=== PATIENT | female | born 1990 | race African-American/Black ===

== ENCOUNTER 2017-01-27 09:26 | Emergency (ER) | payer MEDICAID ==
[~2017-01-27] VITALS: Ht 149.9 cm; Wt 52.0 kg
[2017-01-27] MEDS ORDERED: SODIUM CHLORIDE 0.9% 1,000 ML IV ONE (12:15)
[2017-01-27] MEDS ORDERED: ONDANSETRON HCL 4MG/2ML VIAL IV ONE (12:15)
[2017-01-27] MEDS ORDERED: FAMOTIDINE 20MG/2ML VIAL IV ONE (12:15)
[2017-01-27 12:55] LABS: HEMATOCRIT. 37.9 % (36.0-48.0); HEMOGLOBIN. 12.7 g/dL (12.0-16.0); MEAN CORPUSCULAR VOLUME 89.8 fL (81.0-99.0); MEAN PLATELET VOLUME 7.6 fl (7.4-10.4); PLATELET 251 x1000/uL (130-400); RED BLOOD CELL COUNT 4.21 mill/uL (4.2-5.4); RED CELL DISTRIBUTION WIDTH 13.7 % (11.6-14.6)
[2017-01-27 13:07] LABS: CHLORIDE 102 mEq/L (98-107)
[2017-01-27 13:13] LABS: CARBON DIOXIDE 28 mEq/L (21-32)
[2017-01-27 13:36] LABS: PLATELET ESTIMATE NORMAL
[2017-01-27] MEDS ORDERED: KETOROLAC 30MG/ML VIAL IV ONE (15:30)
[2017-01-27 16:40] VITALS: BP 108/60
== END 2017-01-27 17:45 | disposition home or self-care (01) ==
LOC: ER 10:24
DX: N83.202 Unspecified ovarian cyst, left side (principal); F17.210 Nicotine dependence, cigarettes, uncomplicated; Z91.018 Allergy to other foods
CPT/HCPCS: 36415; 76830; 76856; 80053; 83690; 85025; 96361; 96374; 96375; 99285; J1885; J2405; J3490; Z7610; J7030

== ENCOUNTER 2017-09-09 09:31 | Emergency (ER) | payer SELFPAY ==
[~2017-09-09] VITALS: Ht 162.6 cm; Wt 59.0 kg
[2017-09-09 10:34] LABS: CLARITY URINE CLEAR (CLEAR); COLOR URINE YELLOW (YELLOW); KETONES URINE NEGATIVE (NEGATIVE); LEUKOCYTE ESTERASE URINE NEGATIVE (NEGATIVE); NITRITE URINE NEGATIVE (NEGATIVE); OCCULT BLOOD URINE NEGATIVE (NEGATIVE); PROTEIN URINE NEGATIVE (NEGATIVE); SPECIFIC GRAVITY URINE 1.021 (1.005-1.030)
[2017-09-09] MEDS ORDERED: ACETAMINOPHEN 325MG TABLET PO ONE (10:45)
[2017-09-09 11:12] LABS: BASOPHILS % 0.5 % (0.0-2.0); EOSINOPHILS % 0.5 % (0.0-5.0); HEMATOCRIT. 32.8 % (36.0-48.0); HEMOGLOBIN. 11.3 g/dL (12.0-16.0); MEAN CORPUSCULAR HEMOGLOBIN 30.1 pg (28.0-32.0); MEAN CORPUSCULAR VOLUME 87.3 fL (81.0-99.0); MEAN PLATELET VOLUME 7.6 fl (7.4-10.4); MONOCYTES % 11.1 % (2.0-8.0); NEUTROPHILS % 59.9 % (40.0-76.0); PLATELET 290 x1000/uL (130-400); RED BLOOD CELL COUNT 3.76 mill/uL (4.2-5.4); RED CELL DISTRIBUTION WIDTH 12.7 % (11.6-14.6)
[2017-09-09 11:15] LABS: CHLORIDE 106 mEq/L (98-107)
[2017-09-09 11:41] LABS: B-HCG QUANTITATIVE 157811 mIU/mL (<3)
[2017-09-09 14:43] VITALS: BP 115/74
== END 2017-09-09 14:44 | disposition home or self-care (01) ==
LOC: ER 09:31
DX: O26.891 Other specified pregnancy related conditions, first trimester (principal); R10.30 Lower abdominal pain, unspecified; O21.9 Vomiting of pregnancy, unspecified; O99.011 Anemia complicating pregnancy, first trimester; Z3A.08 8 weeks gestation of pregnancy; Z91.018 Allergy to other foods
CPT/HCPCS: 36415; 76801; 80053; 81003; 81025; 83690; 84702; 85025; 99285

== ENCOUNTER 2019-04-05 02:27 | Emergency (ER) | payer MEDICAID ==
[~2019-04-05] VITALS: Ht 149.9 cm; Wt 61.0 kg
[2019-04-05] MEDS ORDERED: KETOROLAC 30MG/ML VIAL IM ONE (06:30)
[2019-04-05 06:44] VITALS: BP 103/62
== END 2019-04-05 08:08 | disposition home or self-care (01) ==
LOC: ER 02:27
DX: Z98.890 Other specified postprocedural states (principal); M25.572 Pain in left ankle and joints of left foot
CPT/HCPCS: 73610; 96372; 99283; J1885; Z7610

== ENCOUNTER 2022-02-09 08:22 | Emergency (ER) | payer MEDICAID ==
[~2022-02-09] VITALS: Ht 149.9 cm; Wt 64.0 kg
[2022-02-09] MEDS ORDERED: ACETAMINOPHEN 325MG TABLET PO ONE (11:15)
[2022-02-09] MEDS ORDERED: ALBUTEROL (0.083%) 2.5MG/3ML NEB HHN STA (11:31)
[2022-02-09] MEDS ORDERED: ALBU6.7H3 INH (13:05)
[2022-02-09] MEDS ORDERED: TOPUD MT (13:05)
[2022-02-09 13:20] VITALS: BP 105/65
== END 2022-02-09 14:08 | disposition home or self-care (01) ==
LOC: ER 08:22
DX: J45.909 Unspecified asthma, uncomplicated (principal); R06.02 Shortness of breath; Z20.822 Contact with and (suspected) exposure to COVID-19
CPT/HCPCS: 71045; 81025; 87426; 87804; 93005; 94640; 99285; C9803; Z7610

== ENCOUNTER 2023-01-22 01:24 | Emergency (ER) | payer MEDICAID ==
[~2023-01-22] VITALS: Ht 149.9 cm; Wt 63.0 kg
[~2023-01-22 01:24] MED LIST: ALBU6.7H3 INH; TOPUD MT
[2023-01-22 02:51] LABS: ALANINE AMINOTRANSFERASE 22 IU/L (10-49); ALBUMIN 4.5 g/dL (3.2-4.8); ASPARTATE AMINOTRANSFERASE 18 IU/L (<34); BILIRUBIN TOTAL 0.3 mg/dL (0.1-1.0); CALCIUM 9.4 mg/dL (8.7-10.4); CARBON DIOXIDE 26 mEq/L (21-32); CHLORIDE 105 mEq/L (98-107); CREATININE 0.8 mg/dL (0.6-1.0); GLUCOSE 95 mg/dL (70-105); POTASSIUM 3.8 mEq/L (3.5-5.1); PROTEIN TOTAL 8.5 g/dL (6.0-8.3); SODIUM 138 mEq/L (136-145); UREA NITROGEN BLOOD 17 mg/dL (9-23)
[2023-01-22 02:54] LABS: BASOPHILS % 0.6 % (0.0-2.0); EOSINOPHILS % 2.3 % (0.0-5.0); HEMATOCRIT. 36.6 % (36.0-48.0); HEMOGLOBIN. 12.1 g/dL (12.0-16.0); LYMPHOCYTES % 36.3 % (20.0-50.0); MEAN CORPUSCULAR HEMOGLOBIN 28.7 pg (28.0-32.0); MEAN CORPUSCULAR VOLUME 87.1 fL (81.0-99.0); NEUTROPHILS % 53.8 % (40.0-76.0); PLATELET 340 x1000/uL (130-400); RED BLOOD CELL COUNT 4.21 mill/uL (4.2-5.4); RED CELL DISTRIBUTION WIDTH 13.4 % (11.6-14.6); WHITE BLOOD COUNT 9.1 x1000/uL (4.5-11.0)
[2023-01-22 03:48] LABS: TROPONIN I HIGH SENSITIVITY < 4 ng/L (3.0-34)
[2023-01-22] MEDS ORDERED: IPRATROPIUM BROMIDE (0.02%) 0.5MG/2.5ML NEB HHN STA (06:29)
[2023-01-22] MEDS ORDERED: PREDNISONE 20MG TABLET PO STA (06:29)
[2023-01-22] MEDS ORDERED: ALBUTEROL (0.083%) 2.5MG/3ML NEB HHN STA (06:29)
[2023-01-22 06:53] VITALS: PULSE 101; RESP 18; O2SAT 99
[2023-01-22] MEDS ORDERED: TUSSL MT (08:34)
[2023-01-22] MEDS ORDERED: IBUP-2029 MT (08:35)
[2023-01-22 09:08] VITALS: BP 112/80; PULSE 88; RESP 18; TEMP 98.5
== END 2023-01-22 09:10 | disposition home or self-care (01) ==
LOC: ER 01:45
DX: B34.9 Viral infection, unspecified (principal); Z20.822 Contact with and (suspected) exposure to COVID-19
CPT/HCPCS: 80053; 81025; 85025; 85379; 87420; 84484; 36415; 71045; 94640; 93005; 99285; 87426; J7512; Z7610 ×3; C9803; 94644